=== PATIENT | female | born 1985 | race Caucasian/White ===

== ENCOUNTER 2018-12-26 08:22 | Day surgery (SDC) | payer OTHER ==
[2018-12-26 09:00] LABS: HEMATOCRIT 30.4 % (36.0-47.0); HEMOGLOBIN 10.7 g/dL (12.0-15.5); MEAN CORPUSCULAR HEMOGLOBIN 32.8 pg (27.0-33.4); MEAN CORPUSCULAR HGB CONC 35.1 g/dL (32.0-36.0); MEAN CORPUSCULAR VOLUME 94 fl (80-97); PLATELET COUNT 237 10^3/uL (150-450); RED BLOOD COUNT 3.25 10^6/uL (3.72-5.28); RED CELL DISTRIBUTION WIDTH 13.8 % (11.5-14.0); WHITE BLOOD COUNT 6.3 10^3/uL (4.0-10.5)
[2018-12-26 09:57] LABS: APPEARANCE,URINE CLEAR; BILIRUBIN,URINE NEGATIVE (NEGATIVE); COLOR,URINE YELLOW; GLUCOSE, URINE NEGATIVE (NEGATIVE); KETONES,URINE NEGATIVE (NEGATIVE); LEUKOCYTE ESTERASE,URINE NEGATIVE (NEGATIVE); NITRITE,URINE NEGATIVE (NEGATIVE); PROTEIN,URINE NEGATIVE (NEGATIVE); URINE SPECIFIC GRAVITY 1.024; UROBILINOGEN,URINE NEGATIVE mg/dL (<2.0)
[2018-12-26] MEDS ORDERED: FENTANYL CITRATE INJ/PF 100 MCG/2 ML AMPUL ONE ×2 (10:52→12:50)
[2018-12-26] MEDS ORDERED: MIDAZOLAM 2 MG/2 ML INJ ONE (10:52)
[2018-12-26] MEDS ORDERED: PROPOFOL INJ 200 MG/20 ML VIAL IV ONE (10:52)
[2018-12-26] MEDS ORDERED: ACETAMINOPHEN 1,000 MG/100 ML RTUPB IV ONE (10:52)
[2018-12-26] MEDS ORDERED: PROMETHAZINE HCL INJ 25 MG/1 ML VIAL IV PRN (12:04)
[2018-12-26] MEDS ORDERED: FENTANYL CITRATE INJ/PF 100 MCG/2 ML AMPUL IV PRN ×3 (12:04)
[2018-12-26] MEDS ORDERED: MORPHINE SULFATE 10 MG/ML INJ IV PRN (12:04)
[2018-12-26] MEDS ORDERED: DIPHENHYDRAMINE HCL 50 MG/ML VIAL IV PRN (12:04)
[2018-12-26] MEDS ORDERED: ONDANSETRON HCL INJ/PF 4 MG/2 ML SDV IV PRN (12:04)
[2018-12-26] MEDS ORDERED: MEPERIDINE HCL/PF INJ 25 MG/1 ML DISP.SYRIN IV PRN (12:04)
[2018-12-26] MEDS ORDERED: RINGERS SOLUTION,LACTATED 1,000 ML IV PRN (12:39)
[2018-12-26] MEDS ORDERED: OXYCODONE-ACETAMINOPHEN 5-325 MG TABLET PO PRN ×2 (12:39)
[2018-12-26] MEDS ORDERED: IBUPROFEN 800 MG TABLET PO PRN (12:39)
[2018-12-26] MEDS ORDERED: KETOROLAC TROMETHAMINE INJ/PF 30 MG/1 ML SDV IV PRN (12:39)
--- NOTE | 2018-12-26 12:41 | Operative Report ---
Operative Report DATE OF SURGERY: 12/26/18 PREOPERATIVE DIAGNOSIS: Patient requests suction D&C for miscarriage POSTOPERATIVE DIAGNOSIS: Same OPERATION: Suction D&C SURGEON: ELBA CERVANTES ANESTHESIA: GA TISSUE REMOVED OR ALTERED: Uterine contents COMPLICATIONS: None ESTIMATED BLOOD LOSS: Minimal INTRAOPERATIVE FINDINGS: Uterus sounded 8 cm before and after the case PROCEDURE: Patient was taken the OR and placed in supine position. General anesthesia was induced. She is placed in dorsolithotomy position using Mode stirrups. Perineum and vagina were prepared and draped in sterile fashion. Her bladder was emptied with a red rubber catheter. Speculum was placed in the vagina and the anterior lip of the cervix was grasped with tenaculum. Uterus sounded to 8 cm. A large dilator was placed without difficulty. The cervix appeared to be already dilated. A size 10 curved curette was used to evacuate the uterine contents. All specimens sent for pathology. All instruments were removed at the end of the case she is placed back in supine position taken recovery in stable condition.
--- NOTE | 2018-12-26 12:43 | Discharge Summary ---
Discharge Summary (SDC) - Discharge Final Diagnosis: Blighted ovum Date of Surgery: 12/26/18 Discharge Date: 12/26/18 Condition: Good Referrals: LINDA HARRIS NP [Primary Care Provider] - Discharge Diet: Regular Discharge Activity: Pelvic Rest Report the Following to Your Physician Immediately: Fever over 101 Degrees, Unusual Bleeding
[2018-12-26] MEDS ORDERED: KETOROLAC TROMETHAMINE 60 MG/2 ML SDV ONE (12:45)
[2018-12-26] MEDS ORDERED: OXYCODONE-ACETAMINOPHEN 5-325 MG TABLET ONE (14:09)
[2018-12-26 16:04] VITALS: BP 111/70
== END 2018-12-26 15:30 | disposition home or self-care (01) ==
LOC: OROUT 08:22
PROVIDERS: ATTEND Obstetrics & Gynecology
DX: O02.1 Missed abortion (principal); E66.9 Obesity, unspecified; Z79.899 Other long term (current) drug therapy; Z68.35 Body mass index [BMI] 35.0-35.9, adult
CPT/HCPCS: 36415; 85027; 81001; 88305 ×2; 59820; J2250; J1885; J3010; J2704; J0131; 1965